=== PATIENT | female | born 1985 | race Caucasian/White ===

== ENCOUNTER 2022-10-13 14:25 | Emergency (ER) | payer BC ==
[~2022-10-13] VITALS: Ht 160 cm; Wt 56.7 kg
[2022-10-13] MEDS ORDERED: ZOLOFT100 MG (14:34)
[2022-10-13] MEDS ORDERED: ZOFRAN8 MG PO (20:20)
== END 2022-10-13 20:32 | disposition home or self-care (01) ==
LOC: ER 14:25
DX: K52.89 Other specified noninfective gastroenteritis and colitis (principal); R10.9 Unspecified abdominal pain; R11.10 Vomiting, unspecified; A08.8 Other specified intestinal infections